=== PATIENT | female | born 1985 | race Caucasian/White ===

== ENCOUNTER → 2017-09-06 | Emergency (ER) | payer OTHER ==
[~2017-09-06] MED LIST: MOTRIN800 MG PO; ORPH100T PO
== END | disposition home or self-care (01) ==
LOC: ER 09:34
DX: M25.532 Pain in left wrist (principal)

== ENCOUNTER 2017-09-12 09:10 | Outpatient (CLI) | payer OTHER | END 2017-09-12 09:21 | disposition home or self-care (01) | LOC: RAD 501 09:10 | DX: M25.512 Pain in left shoulder (principal); M25.522 Pain in left elbow ==